=== PATIENT | male | born 1985 | race Two or more races ===

== ENCOUNTER 2024-12-02 00:45 | Emergency (ER) | payer BC ==
[~2024-12-02] VITALS: Ht 177.8 cm; Wt 104.3 kg
[2024-12-02] MEDS ORDERED: ACETAMINOPHEN W/ CODEINE#3 1 EA TABLET ONE (01:51)
[2024-12-02] MEDS ORDERED: predniSONE 20 MG TABLET ONE (01:52)
[2024-12-02] MEDS: predniSONE 50 MG TABLET PO ONE (01:59)
[2024-12-02] MEDS: ACETAMINOPHEN W/ CODEINE#3 1 EA TABLET PO ONE (02:00)
[2024-12-02] MEDS ORDERED: IBUP-1957 PO (02:46)
[2024-12-02] MEDS ORDERED: PRED50TA PO (02:46)
[2024-12-02 02:56] VITALS: BP 152/80; TEMP 98.2; O2SAT 98
== END 2024-12-02 02:56 | disposition home or self-care (01) ==
LOC: ER 01:05
DX: S39.012A Strain of muscle, fascia and tendon of lower back, initial encounter (principal); Z79.1 Long term (current) use of non-steroidal anti-inflammatories (NSAID); Z79.52 Long term (current) use of systemic steroids; V43.52XA Car driver injured in collision with other type car in traffic accident, initial encounter; Y93.89 Activity, other specified; Y92.488 Other paved roadways as the place of occurrence of the external cause; Y99.8 Other external cause status
CPT/HCPCS: 99284; 72131; J7512